=== PATIENT | male | born 1975 | race Caucasian/White ===

== ENCOUNTER 2017-01-27 15:17 | Emergency (ER) | payer MEDICAID ==
--- NOTE | 2017-01-27 15:44 | ED Physician Documentation ---
PD HPI BACK PAIN - Stated complaint Stated Complaint: FLANK PAIN RT - Chief complaint Chief Complaint: Abd Pain - History obtained from History obtained from: Patient - History of Present Illness Timing - onset: How many hours ago (2), Today Timing - duration: Hours (2) Timing - details: Abrupt onset, Still present (he had some flank pain and some brief hematuria about 2 weeks ago and then improved. Was doing okay until today with abrupt severe pain right abd and flank.) Location: Mid, Lower, Right Quality: Pain, Aching. No: Spasm Associated symptoms: Hematuria. No: Fever, Weakness, Numbness Improves with: No: Rest Worsened by: No: Movement, Lifting, Twisting Contributing factors: No: Twisting, Trauma Similar symptoms before: Diagnosis (kidney stones 7 times in the past. Has passed all of them.) Review of Systems Constitutional: denies: Fever, Chills Nose: denies: Rhinorrhea / runny nose, Congestion Throat: denies: Sore throat Cardiac: denies: Chest pain / pressure, Palpitations Respiratory: denies: Dyspnea, Cough GI: reports: Abdominal Pain, Nausea. denies: Abdominal Swelling, Vomiting, Diarrhea : denies: Dysuria, Frequency Skin: denies: Rash, Lesions ( sdaaaaaaaaaaaaaaaaaaaaaaaaaaaaaaaaaaaaaaaaaaaaaaaaaaaaaaaaaaaaaaaaaaaaaaaaaaaaaa aaaaaaaaaaaaaaaaaaaaaaaaaaaaaaaaaaaaaaaaaaaaaaaaa ) Musculoskeletal: reports: Back pain. denies: Neck pain PD PAST MEDICAL HISTORY - Past Medical History Cardiovascular: None Neuro: None Endocrine/Autoimmune: None : Kidney stones - Present Medications Home Medications: Ambulatory Orders Medication Instructions Recorded Confirmed Dexamethasone [Decadron] 4 mg PO DAILY #5 tablet 01/27/17 Naproxen [Naprosyn] 500 mg PO BID PRN #15 tablet 01/27/17 Ondansetron Odt [Zofran] 4 mg TL Q6H PRN #15 tablet 01/27/17 Oxycodone HCl/Acetaminophen 1 each PO Q6H PRN #20 tablet 01/27/17 [Percocet 5-325 mg Tablet] raNITIdine [Zantac] 150 mg PO DAILY 01/27/17 01/27/17 - Allergies Allergies/Adverse Reactions: Allergies Allergy/AdvReac Type Severity Reaction Status Date / Time No Known Drug Allergies Allergy Verified 01/27/17 15:47 PD ED PE NORMAL - Vitals Vital signs reviewed: Yes (noted to have low BP and HR with the severe pain in triage. ) - General General: Alert and oriented X 3, Well developed/nourished, Other (appears in considerable pain. ) - HEENT HEENT: Atraumatic, Pharynx benign - Neck Neck: Supple, no meningeal sign, No adenopathy - Cardiac Cardiac: RRR, No murmur - Respiratory Respiratory: Clear bilaterally - Abdomen Abdomen: Soft, Non tender - Male Male : Deferred - Rectal Rectal: Deferred - Back Back: No spinal TTP, Other (there is right CVA tenderness to percussion. ) - Derm Derm: Normal color, Warm and dry, No rash - Extremities Extremities: No tenderness to palpate, Normal ROM s pain, No edema, No calf tenderness / cord - Neuro Neuro: Alert and oriented X 3, No motor deficit, No sensory deficit, Normal speech - Psych Psych: Normal mood, Normal affect Results - Vitals Vitals: Vital Signs - 24 hr 01/27/17 01/27/17 01/27/17 15:22 15:30 16:19 Temperature 35.5 C L 36.5 C Heart Rate 48 L 54 L 61 Respiratory 18 18 18 Rate Blood Pressure 86/57 L 131/77 H 121/97 H O2 Saturation 98 100 100 01/27/17 01/27/17 01/27/17 17:38 17:39 18:06 Temperature 36.6 C 36.7 C 36.6 C Heart Rate 66 88 85 Respiratory 18 24 20 Rate Blood Pressure 106/75 106/75 106/75 O2 Saturation 96 96 95 Oxygen O2 Source Room air - EKG (time done) 15:31 Rate: Rate (enter#) (44) Rhythm: Sinus bradycardia [place]: Normal Intervals: Normal GA QRS: Normal Ischemia: Normal ST segments. No: ST elevation c/w ischemia, ST depression, T wave inversion - Labs Labs: Laboratory Tests 01/27/17 01/27/17 01/27/17 15:34 15:34 15:34 WBC 13.0 H RBC 5.67 Hgb 17.6 Hct 50.8 MCV 89.7 MCH 31.0 MCHC 34.6 RDW 13.2 Plt Count 241 MPV 9.5 Neut # 7.9 H Lymph # 3.9 H Braxton # 1.0 Eos # 0.2 Baso # 0.1 Absolute Nucleated RBC 0.01 Nucleated RBC % 0.0 Manual Slide Review Indicated Platelet Estimate NORMAL (130-450,000) Platelet Morphology 1+ LARGE PLATELETS RBC Morph Micro Appear NORMAL APPEARANCE Sodium 138 Potassium 2.9 L Chloride 100 L Carbon Dioxide 24 Anion Gap 14.0 H BUN 16 Creatinine 1.1 Estimated GFR (MDRD) 73 L Glucose 99 POC Whole Bld Glucose Calcium 9.5 Total Bilirubin 1.8 H AST 56 H ALT 78 H Alkaline Phosphatase 66 Troponin I < 0.04 Total Protein 7.7 Albumin 4.9 Globulin 2.8 Albumin/Globulin Ratio 1.8 Lipase 23 01/27/17 15:34 WBC RBC Hgb Hct MCV MCH MCHC RDW Plt Count MPV Neut # Lymph # Braxton # Eos # Baso # Absolute Nucleated RBC Nucleated RBC % Manual Slide Review Platelet Estimate Platelet Morphology RBC Morph Micro Appear Sodium Potassium Chloride Carbon Dioxide Anion Gap BUN Creatinine Estimated GFR (MDRD) Glucose POC Whole Bld Glucose 82 Calcium Total Bilirubin AST ALT Alkaline Phosphatase Troponin I Total Protein Albumin Globulin Albumin/Globulin Ratio Lipase - Rads (name of study) KUB CT Radiology: Prelim report reviewed (right ureterolithiasis near UVJ about 3 cm. mild hydronephrosis. ) PD MEDICAL DECISION MAKING - ED course Complexity details: reviewed results, re-evaluated patient (improved after doses of meds. ), considered differential, d/w patient Departure - Departure Disposition: 01 Home, Self Care Clinical Impression: Right sided abdominal pain, Ureterolithiasis, Vasovagal episode Condition: Stable Record reviewed to determine appropriate education?: Yes Instructions: ED Stone Renal W Colic Follow-Up: [facility] [Provider Group] Prescriptions: Dexamethasone [Decadron] 4 mg PO DAILY #5 tablet Naproxen [Naprosyn] 500 mg PO BID PRN #15 tablet PRN Reason: Pain Ondansetron Odt [Zofran] 4 mg TL Q6H PRN #15 tablet PRN Reason: Nausea / Vomiting Oxycodone HCl/Acetaminophen [Percocet 5-325 mg Tablet] 1 each PO Q6H PRN #20 tablet PRN Reason: Pain Comments: Drink adequate fluids for hydration. Use anti-inflammatories of naproxen or ibuprofen twice daily for the next several days to week. Add Decadron which is a steroid anti-inflammatory daily for the next few days until it seems that the stone has passed. Strain your urine for the stone though sometimes it will pass to the bladder and not urinate out right away so the real gauge of whether the stone is passed as the lack of further pain. Add Tylenol or Percocet if needed for pain. Ondansetron if needed for nausea. Follow-up with urology if not improved and still having pain by Monday, call them for an appointment at that time which she will still be a couple of days after that. Discharge Date/Time: 01/27/17 18:06
[2017-01-27 15:48] LABS: BASOPHILS # (AUTO) 0.1 10^3/uL (0.0-0.1); BASOPHILS % (AUTO) 0.8 %; EOSINOPHILS # (AUTO) 0.2 10^3/uL (0.0-0.7); EOSINOPHILS % (AUTO) 1.3 %; HCT - HEMATOCRIT 50.8 % (42.0-52.0); HGB - HEMOGLOBIN 17.6 g/dL (14.0-18.0); LYMPHOCYTES # (AUTO) 3.9 10^3/uL (1.5-3.5); LYMPHOCYTES % (AUTO) 29.8 %; MEAN CORPUSCULAR HGB CONC 34.6 g/dL (32.0-36.0); MEAN CORPUSCULAR VOLUME 89.7 fL (80.0-94.0); MEAN PLATELET VOLUME 9.5 fL (7.4-11.4); MONOCYTES % (AUTO) 7.9 %; NEUTROPHILS # (AUTO) 7.9 10^3/uL (1.5-6.6); NEUTROPHILS % (AUTO) 60.2 %; RED BLOOD COUNT 5.67 10^6/uL (4.70-6.10); RED CELL DISTRIBUTION WIDTH 13.2 % (12.0-15.0)
[2017-01-27 15:52] LABS: ALBUMIN/GLOBULIN RATIO 1.8 (1.0-2.2); CALCIUM 9.5 mg/dL (8.5-10.3); CREATININE 1.1 mg/dL (0.6-1.2); POTASSIUM 2.9 mmol/L (3.5-5.0); TOTAL PROTEIN 7.7 g/dL (6.7-8.2)
[2017-01-27] MEDS ORDERED: ONDANSETRON 4 MG/2 ML VIAL IVP STA (15:58)
[2017-01-27] MEDS ORDERED: SODIUM CHLORIDE 0.9% 1,000 ML IV ONE (15:58)
[2017-01-27] MEDS ORDERED: KETOROLAC 60 MG/2 ML VIAL IVP STA (15:58)
[2017-01-27] MEDS ORDERED: HYDROmorphone 1 MG/ML SYRINGE IVP STA ×2 (15:58→16:27)
[2017-01-27] MEDS ORDERED: POTASSIUM BICARB 25 MEQ TABLET PO STA (15:59)
[2017-01-27 16:13] LABS: PLATELET ESTIMATE, MANUAL NORMAL (130-450,000) (NORMAL)
--- NOTE | 2017-01-27 16:19 | XRAY Preliminary Report ---
Exam: XR CHEST 1 VIEW IMPRESSION: No acute cardiopulmonary abnormality. [facility] SITE ID: [id number]
--- NOTE | 2017-01-27 16:22 | XRAY Report ---
EXAM: CHEST RADIOGRAPHY EXAM DATE: 01/27/2017 03:53 PM. CLINICAL HISTORY: Chest pain. COMPARISON: None. TECHNIQUE: 1 view. FINDINGS: Lungs/Pleura: No consolidative process or focal airspace disease. Negative for pulmonary edema and pn eumothorax. Mediastinum: Within exam limitations, the cardiomediastinal contour is normal. Other: None. IMPRESSION: No acute cardiopulmonary abnormality. [facility] Referring Provider Line: [phone] SITE ID: [id number]
[2017-01-27] MEDS ORDERED: DEXAMETHASONE 10 MG/ML VIAL IVP STA (16:27)
--- NOTE | 2017-01-27 17:00 | CT Preliminary Report ---
Exam: CT KUB IMPRESSION: 1. 2.4 mm distal right ureter stone without hydronephrosis. 2. Steatosis of the liver. [facility] SITE ID: [id number]
--- NOTE | 2017-01-27 17:03 | CT Report ---
EXAM: CT ABDOMEN AND PELVIS (CT KUB) EXAM DATE: 01/27/2017 04:45 PM. CLINICAL HISTORY: Right flank pain. COMPARISONS: None. TECHNIQUE: Routine axial helical CT imaging was performed through the abdomen and pelvis without IV c ontrast. Reconstructions: Coronal and sagittal. In accordance with CT protocol optimization, one or more of the following dose reduction techniques w ere utilized for this exam: automated exposure control, adjustment of mA and/or KV based on patient s ize, or use of iterative reconstructive technique. FINDINGS: Lung Bases: Unremarkable. Right Kidney/Ureter: There is a round 2.4 mm calcified stone at the right ureterovesicular junction. No significant hydronephrosis. Left Kidney/Ureter: No stones, hydronephrosis, or hydroureter. No perinephric fat stranding. Other Solid Organs: The liver parenchyma is diffusely low in density. The adrenal glands, spleen, martinez creas appear unremarkable for technique. Gallbladder/Bile Ducts: Unremarkable. Peritoneal Cavity: Previous colon surgery and anastomosis noted. No dilated or thickened bowel loops. Appendix appears normal. Pelvic Organs: No bladder stones or wall thickening. Noncontrast images of the visualized pelvic orga ns are unremarkable. Vasculature: Unremarkable. Other: None. IMPRESSION: 1. 2.4 mm distal right ureter stone without hydronephrosis. 2. Steatosis of the liver. [facility] Referring Provider Line: [phone] SITE ID: [id number]
[2017-01-27 17:39] VITALS: BP 106/75
[2017-01-28 06:35] LABS: BILIRUBIN,TOTAL 1.9 mg/dL (0.2-1.0)
== END 2017-01-27 18:06 | disposition home or self-care (01) ==
LOC: ED 15:17
DX: N20.1 Calculus of ureter (principal); R55 Syncope and collapse; R00.1 Bradycardia, unspecified
CPT/HCPCS: 36415; 71010; 74176; 80053; 83690; 84484; 85025; 93005; 96374; 96375; 99284; A9270; J1170